=== PATIENT | female | born 1985 | race Two or more races ===

== ENCOUNTER 2025-06-28 10:14 | Inpatient (IN) | payer MEDICAID, OTHER ==
[~2025-06-28] VITALS: Ht 165.1 cm; Wt 85.5 kg
--- NOTE | 2025-06-28 10:26 | ED.PDOC ---
Musculoskeletal HPI Comments This is a 39 year-old female who presents to the ED via EMS with a chief complaint of back pain as of yesterday. Patient states she was doing laundry when she "heard a pop". Patient reports pain as a 6/10, gradually worsening, with an inability to bear weight or get up. Patient denies this happening before and has no further complaints or modifying factors at this time. Patient otherwise denies further symptoms of N/V, fever, chills, general weakness, or dysuria. Chief Complaint: Lower Extremity Time Seen by MD: 10:15 Reviewed Notes: Nurses Notes, Medications, Allergies Allergies: Coded Allergies: Latex (Verified Allergy, Severe, 06/28/25) Uncoded Allergies: TAPE (Allergy, Severe, 06/28/25) Information Source: Patient, Emergency Med Personnel Mode of Arrival: EMS Extremity Location: Back Timing: Days Prehospital treatment: Pain Meds (Fent 100 IM ) Severity: Moderate Bear Weight: No Pain: Moderate Circumstances: Other (Laundry ) Symptoms: Pain DVT Risk Factors: NONE Associated signs and symptoms: Back pain Past Medical History PAST MEDICAL HISTORY: Denies Surgical History: Tubal Ligation RETAIL STOCKER History: No Pertinent RETAIL STOCKER History Family History Family History: Reviewed,noncontributory to illness, No family hx of Heart belgica, No family hx of HTN, No family hx ofKidney belgica, No family hx of Liver belgica, No family hx of Lung belgica, No family hx of Stroke, Family hx of DM, Family hx of Cancer Social History Smoker: Non-Smoker Alcohol: Denies ETOH Use Drugs: Marijuana Lives In: Home Constitutional: denies: chills, diaphoresis, fatigue, fever, malaise, sweats, weakness, others EENTM: denies: blurred vision, double vision, ear bleeding, ear discharge, ear drainage, ear pain, ear ringing, eye pain, eye redness, hearing loss, mouth pain, mouth swelling, nasal discharge, nose bleeding, nose congestion, nose pain, photophobia, tearing, throat pain, throat swelling, voice changes, others Respiratory: denies: cough, hemoptysis, orthopnea, SOB at rest, shortness of breath, SOB with excertion, stridor, wheezing, others Cardiovascular: denies: chest pain, dizzy spells, diaphoresis, Dyspnea on exertion, edema, irregular heart beat, left arm pain, lightheadedness, palpitations, PND, syncope, others Gastrointestinal: denies: abdomen distended, abdominal pain, blood streaked bowels, constipated, diarrhea, dysphagia, difficulty swallowing, hematemesis, melena, nausea, poor appetite, poor fluid intake, rectal bleeding, rectal pain, vomiting, others Genitourinary: denies: abnormal vagina bleeding, burning, dyspareunia, dysuria, flank pain, frequency, hematuria, incontinence, pain, , vagina discharge, urgency, others Neurological: denies: dizziness, fainting, headache, left sided numbness, left sided weakness, numbness, paresthesia, pre-existing deficit, right sided n umbness, right sided weakness, seizure, speech problems, tingling, tremors, weakness, others Musculoskeletal: reports: back pain; denies: gout, joint pain, joint swelling, muscle pain, muscle stiffness, neck pain, others Integumetry: denies: bruises, change in color, change in hair/nails, dryness, laceration, lesions, lumps, rash, wounds, others Allergic/Immunocompromised: denies: Difficulty Healing, Frequent Infections, Hives, Itching, others Hematologic/Lymphatic: denies: anemia, blood clots, easy bleeding, easy bruising, swollen glands, others Psychiatric: denies: anxiety, bipolar disorder, depression, hopeless, panic disorder, schizophrenia, sleepless, suicidal, others All Other Systems: Reviewed and Negative Physical Exam General Appearance: Moderate Distress HEENT: Normal ENT Inspection, Pharynx Normal, TMs Normal Neck: Full Range of Motion, Non-Tender, Normal, Normal Inspection Respiratory: Chest Non-Tender, Lungs Clear, No Accessory Muscle Use, No Respiratory Distress, Normal Breath Sounds Cardiovascular: No Edema, No JVD, No Murmur, No Gallop, Normal Peripheral Pulses, Regular Rate/Rhythm Breast Exam: Deferred Gastrointestinal: No Organomegaly, Non Tender, No Pulsatile Mass, Normal Bowel Sounds, Soft Genitalia: Deferred Pelvic: Deferred Rectal: Deferred Extremities: No calf tenderness, Normal capillary refill, Normal inspection, Normal range of motion, Non-tender, No pedal edema Musculoskeletal : Location: Bilateral Extremity Location: Back Apperance: Limited ROM, Tenderness: Moderate Neurologic: Alert, drug abuse worker II-XII nml as Tested, No Motor Deficits, Normal Affect, Normal Mood, No Sensory Deficits Cerebellar Function: Normal Reflexes: Normal Skin: Dry, Normal Color, Warm Lymphatic: No Adenopathy Was a procedure done? Was a procedure done?: No Differential Diagnosis EXT Differential Diagnosis: Cellulitis, Fracture, Sprain, Strain X-Ray, Labs, Meds, VS Vital Signs Date Time Temp Pulse Resp B/P (MAP) Pulse Ox O2 Delivery O2 Flow Rate FiO2 06/28/25 11:13 63 9 98 Room Air* 0 21 06/28/25 10:59 63 9 114/63 06/28/25 10:40 63 9 114/63 (80) 98 06/28/25 10:22 98.3 72 18 121/68 99 98.3 Current Medications Medications (Trade) Dose Ordered Sig/Patricia Route Start Time Stop Time Status Last Admin Morphine Sulfate 4 mg ONCE ONCE IV 06/28/25 10:30 06/28/25 10:31 DC 06/28/25 10:59 Ondansetron HCl (Zofran) 4 mg ONCE ONCE IV 06/28/25 10:30 06/28/25 10:31 DC 06/28/25 10:59 Cyclobenzaprine HCl (Flexeril Tablet) 10 mg ONCE ONCE PO 06/28/25 12:00 06/28/25 12:01 DC 06/28/25 12:00 IV Hep-Lock was established. The patient was initially given morphine 4 mg IV push for the pain The patient was given Zofran 4 mg IV push for the nausea The patient was given Flexeril 10 mg by mouth The patient is being admitted at this time The CAT scan of the LS spine shows no sign of any acute fracture or subluxation. The patient is still unable to move at all without any significant pain so we are going to keep the patient The patient will have a Beltrán catheter placed. Images Reviewed?: Images reviewed and evaluated by me Time of 1ST Reevaluation: 10:59 Reevaluation 1ST: Unchanged Patient Education/Counseling: Diagnosis, Treatment, Prognosis Family Education/Counseling: Diagnosis, Treatment, Prognosis Medical Screening: Further ED Eval. Needed Departure 1 Departure Time of Disposition: 12:36 Impression: Primary Impression: Intractable back pain Disposition: ADMITTED INPATIENT Admit to: Med Surg Condition: Stable Critical Care Note Critical Care Time?: No Stability Stability form required: Yes Unstable for transfer: ED Physician Assesment (Clinical assesment) Heart Score Heart Score: Heart Score Response (Comments) Value History N/A 0 EKG N/A 0 Age N/A 0 Risk Factors N/A 0 Troponin N/A 0 Total 0 I personally scribed for FATMATA ZAPATA MD ([email or web address]) on 06/28/25 at 10:26. Electronically submitted by Shereen ButtsAL[facility]). FATMATA ZAPATA MD Jun 28, 2025 10:26
[2025-06-28] MEDS: MORPHINE SULFATE 4 MG/ML SYR/VIAL IV ONE (10:59)
[2025-06-28] MEDS: ONDANSETRON HCL 4 MG/2 ML VIAL IV ONE (10:59)
[2025-06-28 11:13] VITALS: PULSE 63; RESP 9; O2SAT 98
--- NOTE | 2025-06-28 11:17 | DVH ---
COMPUTERIZED TOMOGRAPHY OF THE LUMBAR SPINE, NONCONTRAST REASON FOR EXAM: pain COMPARISON: None TECHNIQUE: CT of the lumbar spine was performed in routine fashion with sagittal and coronal reconst ructions. Soft tissues and bone windows were filmed. Automated exposure control was used. RADIATION DOSE: CTDI: 30 mGy DLP: 1054 mGy-cm FINDINGS: The vertebral bodies are normal in height and alignment with no evidence of fracture. No focal bony lesions are seen. The soft tissues are unremarkable. There is moderate disc height loss at L4-L5 with endplate hypertrophy. There is approximately 3 mm broad-based disc bulge at L3-L4 and L4 -L5. There is no significant spinal canal narrowing. There is no significant bony neural foraminal n arrowing. With the visualized intrapelvic and intra abdominal contents are grossly unremarkable. IMPRESSION: Moderate degenerative disc disease at L4-L5. Small broad-based disc bulges at L3-L4 and L4-L5 without significant spinal canal or neural foraminal narrowing.
[2025-06-28] MEDS: CYCLOBENZAPRINE HCL 10 MG TAB PO ONE (12:00)
[2025-06-28] MEDS: KETOROLAC TROMETH 30 MG/ML 1ML VIAL IV ONE (12:57)
[2025-06-28 15:28] LABS: Urine Protein, UAD Negative (Negative)
[2025-06-28] MEDS ORDERED: ONDANSETRON HCL 4 MG/2 ML VIAL IV PRN (19:15)
[2025-06-28] MEDS ORDERED: ACETAMINOPHEN 325 MG TAB PO PRN (19:15)
[2025-06-28] MEDS ORDERED: TEMAZEPAM 15 MG CAP PO PRN (19:15)
[2025-06-28] MEDS ORDERED: BACLOFEN 10 MG TAB PO PRN (19:15)
[2025-06-28 20:08] VITALS: PULSE 61; RESP 15; O2SAT 98
--- NOTE | 2025-06-28 22:27 | DVHHP2 ---
History of Present Illness Reason for Visit: Back pain History of Present Illness 39-year-old female presents for evaluation of back pain. Patient reports that yesterday while doing her laundry she bent over to sheepskin pickler a basket when she got up she felt a pop on her lower back and since then she has been having excruciating lower back pain making it difficult to ambulate. Denies lower extremity numbness or tingling. Past Medical History Scoliosis Past Surgical History Tubal ligation Family History Noncontributory Smoke: No ALCOHOL: none Drugs: Marijuana Lives: with Family Review of Systems Review of Systems Review of systems are currently negative otherwise addressed in HPI. Allergies: Coded Allergies: Latex (Verified Allergy, Severe, 06/28/25) Uncoded Allergies: TAPE (Allergy, Severe, 06/28/25) Medications Current Medications Medications Dose Ordered Sig/Patricia Route Start Time Stop Time Status Last Admin Dose Admin Baclofen 5 mg Q8HP PRN PO 06/28/25 19:15 Lidocaine 1 patch DAILY TOP 06/29/25 10:00 Bupropion HCl 100 mg BID@, PO 06/29/25 07:00 Acetaminophen/ Hydrocodone Bitart 1 tab Q4HP PRN PO 06/28/25 19:15 Temazepam 15 mg QHSP PRN PO 06/28/25 19:15 Ondansetron HCl 4 mg Q4HP PRN IV 06/28/25 19:15 Acetaminophen 650 mg Q6HP PRN PO 06/28/25 19:15 Morphine Sulfate 2 mg Q6HPRN PRN IV 06/28/25 19:15 Exam Vital Signs Vital Signs Date Time Temp Pulse Resp B/P (MAP) Pulse Ox O2 Delivery O2 Flow Rate FiO2 06/28/25 20:08 61 15 98 Room Air* 0 21 06/28/25 19:30 113/53 (73) 06/28/25 10:22 98.3 98.3 Exam Gen: 39-year-old female in mild distress Skin: Warm, dry, normal color and texture, no rash. HEENT: Normocephalic atraumatic, mucous membranes moist and pink. Neck: Cervical and supraclavicular nodes normal without enlargement, trachea is midline, thyroid gland is normal without masses. Pulmonary: Clear to auscultation and percussion bilaterally. Cardiac: Regular rate and rhythm. No murmur Abdomen: Soft, nontender, nondistended, bowel sounds present all 4 quadrants, no guarding, no rigidity, no organomegaly. Extremities: No cyanosis, clubbing, no edema Neuro: Cranial nerves II through XII grossly intact, normal affect and speech, no focal motor deficits. Labs/Xrays ORDERING PHYSICIAN: FATMATA ZAPATA MD PROCEDURE(s): LS2CT - LS SPINE WO CONTRAST REASON: pain ORDER NUMBER(s): [id number], ACCESSION NUMBER(s): [id number] COMPUTERIZED TOMOGRAPHY OF THE LUMBAR SPINE, NONCONTRAST REASON FOR EXAM: pain COMPARISON: None TECHNIQUE: CT of the lumbar spine was performed in routine fashion with sagittal and coronal reconstructions. Soft tissues and bone windows were filmed. Automated exposure control was used. RADIATION DOSE: CTDI: 30 mGy DLP: 1054 mGy-cm FINDINGS: The vertebral bodies are normal in height and alignment with no evidence of fracture. No focal bony lesions are seen. The soft tissues are unremarkable. There is moderate disc height loss at L4-L5 with endplate hypertrophy. There is approximately 3 mm broad-based disc bulge at L3-L4 and L4-L5. There is no significant spinal canal narrowing. There is no significant bony neural foraminal narrowing. With the visualized intrapelvic and intra abdominal contents are grossly unremarkable. IMPRESSION: Moderate degenerative disc disease at L4-L5. Small broad-based disc bulges at L3-L4 and L4-L5 without significant spinal canal or neural foraminal narrowing. Labs Test 06/28/25 13:45 Range/Units Urine Color Yellow Yellow Urine Clarity Clear Clear Urine pH 5.0 5.0-9.0 Urine Specific [place] 1.031 1.001-1.035 Urine Protein Negative Negative Urine Ketones Negative Negative Urine Blood Negative Negative /uL Urine Nitrite Negative Negative Urine Bilirubin Negative Negative Urine Urobilinogen Normal Negative mg/dL Urine Leukocyte Esterase Negative Negative /uL Urine RBC 3 0 - 4 /hpf Urine Microscopic WBC 1 0-5 /HPF Urine Squamous Epithelial Cells Few <5 /hpf Urine Bacteria None seen None Seen /hpf Urine Mucus Few None Seen Urine Glucose Normal Normal mg/dL SEPSIS Sepsis Screen Date sepsis recognized/suspect: Jun 28, 2025 Time Sepsis recognized/suspect: 2018 Recent Procedure: No On Antibiotic Therapy: No Respiratory Rate >20: No Heart Rate >90: No Temp<36 C (96.8 F) or >38.3 C: No SBP <90 or MAP <65 mmHG: No New Acute Mental Status Change: No Is the patient on CPAP, BIPAP,: No Physician Orders Lumbar Spine Wo Contrast (06/28/25 19:12) Baclofen Tablet (Liorisal Tablet) (06/28/25 19:15) Lidocaine 5% Topical Patch (Lidoderm 5% (06/29/25 10:00) Bupropion Tablet (Wellbutrin Tablet) (06/29/25 07:00) Admit (06/28/25 19:12) Hydrocodone-Acet 5/325mg Tab ([place] 5/32 (06/28/25 19:15) Temazepam (Restoril) (06/28/25 19:15) Ondansetron Hcl (Zofran) (06/28/25 19:15) Condition: Stable (06/28/25 19:12) Acetaminophen Tablet (Tylenol Tablet) (06/28/25 19:15) Bedrest With Bathroom Privileg (06/28/25 19:12) Morphine Sulfate Injection (06/28/25 19:15) Regular Diet (06/29/25 Breakfast) Vital Signs Date Time Temp Pulse Resp B/P (MAP) Pulse Ox O2 Delivery O2 Flow Rate FiO2 06/28/25 20:08 61 15 98 Room Air* 0 21 06/28/25 19:30 54 15 113/53 (73) 96 06/28/25 17:04 50 14 123/60 (81) 98 Medications Medications Dose Ordered Sig/Patricia Route Start Time Stop Time Status Last Admin Dose Admin Cyclobenzaprine HCl 10 mg ONCE ONCE PO 06/28/25 12:00 06/28/25 12:01 DC 06/28/25 12:00 10 MG Ketorolac Tromethamine 30 mg ONCE ONCE IV 06/28/25 12:45 06/28/25 12:54 DC 06/28/25 12:57 30 MG Morphine Sulfate 4 mg ONCE ONCE IV 06/28/25 10:30 06/28/25 10:31 DC 06/28/25 10:59 4 MG Ondansetron HCl 4 mg ONCE ONCE IV 9/1/25 10:30 06/28/25 10:31 DC 06/28/25 10:59 4 MG Assessment/Plan Assessment/Plan Assessment Lower back pain History of scoliosis Plan Admit the patient to [facility] to the hospitalist MRI of the lumbar region pending Pain management Continue treatment per orders. Plan discussed with: Patient My Orders Orders - AVIVA RODRIGUEZ Procedure Category Date Status Time Lumbar Spine Wo MRI 06/28/25 Logged Contrast 19:12 Baclofen Tablet PHA 06/28/25 In Process (Liorisal Tablet) 19:15 Lidocaine 5% Topical PHA 06/29/25 In Process Patch (Lidoderm 5% 10:00 Bupropion Tablet PHA 06/29/25 In Process (Wellbutrin Tablet) 07:00 Admit ADMIT 06/28/25 Transmitted 19:12 Hydrocodone-Acet PHA 06/28/25 In Process 5/325mg Tab ([place] 19:15 Temazepam (Restoril) PHA 06/28/25 In Process 19:15 Ondansetron Hcl PHA 06/28/25 In Process (Zofran) 19:15 Condition: Stable SHANNAN 06/28/25 In Process 19:12 Acetaminophen Tablet PHA 06/28/25 In Process (Tylenol Tablet) 19:15 Bedrest With Bathroom SHANNAN 06/28/25 In Process Privileg 19:12 Morphine Sulfate PHA 06/28/25 In Process Injection 19:15 Regular Diet DIET 06/29/25 Transmitted Breakfast Date of Service: Jun 28, 2025 Billing Provider: AVIVA RODRIGUEZ Common Visit Codes: [id number] INP/OBS CARE (MOD) AVIVA RODRIGUEZ Jun 28, 2025 22:27
[2025-06-28] MEDS: HYDROcodone-ACET 5/325MG TAB PO PRN (22:41)
[2025-06-29 04:26] VITALS: BP 107/65; PULSE 57; RESP 13; TEMP 97.7
[2025-06-29 09:00] VITALS: BP 128/74; PULSE 65; RESP 17; TEMP 98.7; O2SAT 96
[2025-06-29 09:14] VITALS: BP 128/74; PULSE 65; RESP 17; TEMP 98.7; O2SAT 96
[2025-06-29] MEDS: LIDOCAINE 5% TOPICAL PATCH TOP SCH (10:12)
--- NOTE | 2025-06-29 11:45 | DVH ---
PROCEDURE: MRI LUMBAR SPINE WO CONTRAST INDICATION: back pain Exam Date: 06/29/2025 10:47 AM COMPARISON: CT LS SPINE WO CONTRAST on DOS: 06/28/25 TECHNIQUE: MRI lumbar spine without intravenous contrast. FINDINGS: Multilevel disc degeneration. Alignment: No spondylolisthesis identified. Vertebrae: Unremarkable Conus: Conus medullaris terminates at the T12 level. Following axial levels detailed below: T12-L1: The disc configuration is normal. No spinal canal or neural foraminal stenosis. The facet jennifer ints are normal. L1-2: The disc configuration is normal. No spinal canal or neural foraminal steno sis. The facet joints are normal. L2-3: The disc configuration is normal. No spinal canal or neural foraminal steno sis. The facet joints are normal. L3-4: Disc desiccation. No spinal canal or neural foraminal stenosis. The facet j oints are normal. L4-5: Disc desiccation. Mild disc height loss. Right subarticular disc protrusion measured 0.9 mm in radial dimension. No spinal canal or neural foraminal stenosis. Facet arthrosis. L5-S1: The disc configuration is normal. No spinal canal or neural foraminal shorty nosis. The facet joints are normal. IMPRESSION: Multilevel disc degeneration. Right subarticular disc protrusion measuring 0.9 mm at L4-L5 without significant canal or foraminal s tenosis.
[2025-06-29] MEDS: MORPHINE SULFATE INJ 2 MG/ml SYRG IV PRN (12:16)
[2025-06-29 13:00] VITALS: BP 128/76; PULSE 61; RESP 17; TEMP 98.4; O2SAT 99
[2025-06-29 17:00] VITALS: BP 134/71; PULSE 64; RESP 17; TEMP 99.1; O2SAT 99
--- NOTE | 2025-06-29 17:14 | DVHPN2 ---
Subjective Patient continues to report having back pain Reviewed: Care Plan, H&P, Labs, Medications Changes from previous H/P or p: No Changes General: Per HPI Objective Vitals Vital Signs Date Time Temp Pulse Resp B/P (MAP) Pulse Ox O2 Delivery O2 Flow Rate FiO2 06/29/25 13:00 98.4 61 17 128/76 (93) 99 98.4 06/29/25 07:30 Room Air* 0 21 Intake/Output Intake and Output 06/29/25 07:00 Output Total 350 ml Balance -350 ml Output Urine Total 350 ml General Appearance: Alert, Oriented X3, Cooperative, mild distress HEENT: Atraumatic, PERRLA Lungs: Clear to auscultation, Normal air movement Cardiovascular: Normal S1, Normal S2 Abdomen: Normal bowel sounds, Soft, No tenderness, No hepatospenomegaly Genitourinary: No Apparent Abnormalities Musculoskeletal: Normal sensory function, Normal motor function Neuro: Normal gait, Normal speech Psych/Mental Status: Mental status NL, Mood NL Medications Current Medications Medications Dose Ordered Sig/Patricia Route Start Time Stop Time Status Last Admin Dose Admin Baclofen 5 mg Q8HP PRN PO 06/28/25 19:15 Lidocaine 1 patch DAILY TOP 06/29/25 10:00 06/29/25 10:12 1 PATCH Bupropion HCl 100 mg BID@ PO 06/29/25 07:00 Acetaminophen/ Hydrocodone Bitart 1 tab Q4HP PRN PO 06/28/25 19:15 06/29/25 16:40 1 TAB Temazepam 15 mg QHSP PRN PO 06/28/25 19:15 Ondansetron HCl 4 mg Q4HP PRN IV 06/28/25 19:15 Acetaminophen 650 mg Q6HP PRN PO 06/28/25 19:15 Morphine Sulfate 2 mg Q6HPRN PRN IV 06/28/25 19:15 06/29/25 12:16 2 MG Laboratory Results Urinalysis Test 06/28/25 13:45 Urine Color Yellow (Yellow) Urine Clarity Clear (Clear) Urine pH 5.0 (5.0-9.0) Urine Specific [place] 1.031 (1.001-1.035) Urine Protein Negative (Negative) Urine Ketones Negative (Negative) Urine Blood Negative /uL (Negative) Urine Nitrite Negative (Negative) Urine Bilirubin Negative (Negative) Urine Urobilinogen Normal mg/dL (Negative) Urine Leukocyte Esterase Negative /uL (Negative) Urine RBC 3 /hpf (0 - 4) Urine Microscopic WBC 1 /HPF (0-5) Urine Squamous Epithelial Cells Few /hpf (<5) Urine Bacteria None seen /hpf (None Seen) Urine Mucus Few (None Seen) Urine Glucose Normal mg/dL (Normal) Labs and/or images reviewed: Labs reviewed by me, Image(s) reviewed by me Assessment/Plan Assessment/Plan Impression: -lumbar spinal stenosis -bipolar disorder -obesity Plan: -lumbar spine consultation -pain management -continue home medications -out of bed as tolerated Total time spent with patient discussing and formulating plan of care: 35 minutes. This medical document was created using an electronic medical record system with [employer] dictation system. Although this document has been carefully reviewed, there may still be some phonetic and typographical errors. These areas are purely typographical due to imperfections of the software programs, and do not reflect any compromise in the patient's medical care. Plan discussed with: Patient, Other (RN) My Orders Orders - JENNY FREEMAN NP Procedure Category Date Status Time Oob To Chair SHANNAN 06/29/25 Transmitted 17:[address] Consult[address] Anish CONS 06/29/25 Transmitted [place](Spine) 17:04 Date of Service: Jun 29, 2025 Billing Provider: JENNY FREEMAN NP Common Visit Codes: [id number] INP/OBS CARE(HIGH) JENNY FREEMAN NP Jun 29, 2025 17:14
[2025-06-29 21:00] VITALS: BP 130/76; PULSE 61; RESP 16; TEMP 97; O2SAT 98
[2025-06-30 01:00] VITALS: BP 105/73; PULSE 65; RESP 17; TEMP 98.4; O2SAT 96
[2025-06-30 05:00] VITALS: BP_SYST 102; BP_SYST 113; BP_DIAS 59; BP_DIAS 80; PULSE 65; PULSE 92; RESP 17; RESP 18; TEMP 97.6; TEMP 97.9; O2SAT 95; O2SAT 97
[2025-06-30 07:41] VITALS: BP 118/79; PULSE 57; RESP 18; TEMP 98.6; O2SAT 98
[2025-06-30] MEDS ORDERED: LIDO5DIS21 TOP (10:16)
[2025-06-30] MEDS ORDERED: BACL5TAB2 PO (10:16)
[2025-06-30] MEDS ORDERED: HYDR-4902 PO (10:16)
--- NOTE | 2025-06-30 10:22 | DVHDS2 ---
Discharge Summary Date of Admission Jun 28, 2025 at 19:12 Date of Discharge: Jun 30, 2025 Admitting Diagnosis Lower back pain Labs/Diagnostic Data: Laboratory Results Test 06/28/25 13:45 Urine Color Yellow (Yellow) Urine Clarity Clear (Clear) Urine pH 5.0 (5.0-9.0) Urine Specific [place] 1.031 (1.001-1.035) Urine Protein Negative (Negative) Urine Ketones Negative (Negative) Urine Blood Negative /uL (Negative) Urine Nitrite Negative (Negative) Urine Bilirubin Negative (Negative) Urine Urobilinogen Normal mg/dL (Negative) Urine Leukocyte Esterase Negative /uL (Negative) Urine RBC 3 /hpf (0 - 4) Urine Microscopic WBC 1 /HPF (0-5) Urine Squamous Epithelial Cells Few /hpf (<5) Urine Bacteria None seen /hpf (None Seen) Urine Mucus Few (None Seen) Urine Glucose Normal mg/dL (Normal) Brief Hx & Hospital Course: History of Present Illness 39-year-old female presents for evaluation of back pain. Patient reports that yesterday while doing her laundry she bent over to pear picker a basket when she got up she felt a pop on her lower back and since then she has been having excruciating lower back pain making it difficult to ambulate. Denies lower extremity numbness or tingling. Course of hospitalization: Patient has CT scan and MRI of the back. Impression from the MRI of the lumbar spine reveals following: PATIENT: KIMO WINTER ACCT: [id number] UNIT: [id number] : 1985 LOC: OVERFLOW ROOM / BED: [address] [place] [address] AGE / SEX: 39 / F ADM STATUS: ADM IN SERVICE 11 ORDERING PHYSICIAN: AVIVA RODRIGUEZ PROCEDURE(s): MSL - LUMBAR SPINE WO CONTRAST REASON: back pain ORDER NUMBER(s): [id number], ACCESSION NUMBER(s): [id number] PROCEDURE: MRI LUMBAR SPINE WO CONTRAST INDICATION: back pain Exam Date: 06/29/2025 10:47 AM COMPARISON: CT LS SPINE WO CONTRAST on DOS: 06/28/25 TECHNIQUE: MRI lumbar spine without intravenous contrast. FINDINGS: Multilevel disc degeneration. Alignment: No spondylolisthesis identified. Vertebrae: Unremarkable Conus: Conus medullaris terminates at the T12 level. Following axial levels detailed below: T12-L1: The disc configuration is normal. No spinal canal or neural foraminal stenosis. The facet joints are normal. L1-2: The disc configuration is normal. No spinal canal or neural foraminal stenosis. The facet joints are normal. L2-3: The disc configuration is normal. No spinal canal or neural foraminal stenosis. The facet joints are normal. L3-4: Disc desiccation. No spinal canal or neural foraminal stenosis. The facet joints are normal. L4-5: Disc desiccation. Mild disc height loss. Right subarticular disc protrusion measured 0.9 mm in radial dimension. No spinal canal or neural foraminal stenosis. Facet arthrosis. L5-S1: The disc configuration is normal. No spinal canal or neural foraminal stenosis. The facet joints are normal. IMPRESSION: Multilevel disc degeneration. Right subarticular disc protrusion measuring 0.9 mm at L4-L5 without significant canal or foraminal stenosis. ATED BY: XAVI LAWRENCE MD DICTATED DATE/TIME: 06/29/25 1142 SIGNED BY: XAVI LAWRENCE MD SIGNED DATE/TIME: 06/29/25 1142 The patient was started on lidocaine patch, muscle relaxer, as well as oral narcotics. I, myself ambulate with the patient approximately 35 ft without use of DME. Patient did require using minimal to mod assist during ambulation. Patient will be discharged home with previously mentioned medications, DME in the form of a walker, as well as follow up with the discharge Clinic in one week. Social service consultation has also been established to assist patient with possible outpatient physical therapy. Physical examination General: Alert and Oriented x3. No acute distress. Well-nourished. Eyes: EOMI. Anicteric. HENT: Moist mucous membranes. Lungs: Clear to auscultation bilaterally. No accessory muscle use. Cardiovascular: Regular rate and rhythm. No murmur. No JVD. Abdomen: Soft, non-tender and non-distended. No palpable masses. Extremities: No edema. Non-tender. Skin: No rashes or lesions. Warm. Neurologic: No focal neurological deficits. CN II-XII grossly intact, but not individually tested. Psychiatric: Cooperative. Appropriate mood and affect. Total time spent with patient discussing and formulating plan of care: 35 minutes. This medical document was created using an electronic medical record system with [employer] dictation system. Although this document has been carefully reviewed, there may still be some phonetic and typographical errors. These areas are purely typographical due to imperfections of the software programs, and do not reflect any compromise in the patient's medical care. Condition at Discharge: Fair Final Diagnosis/Problems List Lumbar spinal stenosis with radiculopathy -bipolar disorder -obesity Discharge Disposition: Home Discharge Instruct/Medications Diet: Regular Activity: No Restrictions, As Tolerated Follow Up/Referral: Discharge Clinic in one week Medications: Lidocaine patch to back once a day x7 days Baclofen 5mg po TID prn [place] 5/325 q.8 hours as needed for [id number] pain Scheduled Lidocaine (Lidoderm 5% Topical Patch), 1 PATCH TOP DAILY Scheduled PRN Baclofen (Baclofen), 5 MG PO Q12HP PRN Hydrocodone-Acetaminophen (Hydrocodone Bitartrate/AC 5-325 mg), 1 TAB PO Q8HP PRN 36 Discharge Statement: "Patient was advised to return to the ER or call 911 if any headaches, dizziness, shortness of breath, chest pain, abdominal pain, bleeding, fevers, or worsening of medical condition. Patient was counseled about treatment plan, medications, possible side effects, patientverbalized understanding. All questions were answered to the best of my ability. This discharge took greater then 30 minutes in planning, reviewing documentation, counseling the patient, and discussing with other team members." DME: Diagnosis: Lower back pain, spinal stenosis, lumbar radiculopathy ASSESSMENT ASSESSMENT Assessment Lumbar spinal stenosis with radiculopathy Date of Service: Jun 30, 2025 Billing Provider: JENNY FREEMAN NP Common Visit Codes: 94087-IGX/OBS DISCH DAY >30min JENNY FREEMAN NP Jun 30, 2025 10:22
[2025-06-30 13:00] VITALS: BP 122/81; PULSE 60; RESP 18; TEMP 97.8; O2SAT 97
== END 2025-06-30 13:06 | disposition home or self-care (01) | DRG 347 ==
LOC: EDBD 10:14 → ER 10:14 → OVERFLOW 19:12 → CENTRAL 06-29 19:16
PROVIDERS: ADMIT Nurse Practitioner Acute Care; ATTEND Nurse Practitioner Acute Care
DX: M48.061 Spinal stenosis, lumbar region without neurogenic claudication (principal); E66.9 Obesity, unspecified; M54.16 Radiculopathy, lumbar region; F31.9 Bipolar disorder, unspecified; Z91.048 Other nonmedicinal substance allergy status; Z91.040 Latex allergy status; Z98.51 Tubal ligation status; Z68.30 Body mass index [BMI] 30.0-30.9, adult; Z79.899 Other long term (current) drug therapy
CPT/HCPCS: 72131; 72148; 81001; 96374; 96375; G0378; J1885; J2405